=== PATIENT | female | born 1965 ===

== ENCOUNTER 2018-08-09 05:59 | Day surgery (SDC) | payer SELFPAY ==
[2018-07-04 09:48] VITALS: BMI 18.6
[2018-08-09] MEDS ORDERED: Lactated Ringer's 1,000 ML IV ONE (07:00)
[2018-08-09] MEDS ORDERED: Ferric Subsulfate Sol(60 mL) ONE (07:57)
[2018-08-09] MEDS ORDERED: Strong Iodine Topical Sol. 5%-10% ONE (07:57)
[2018-08-09] MEDS ORDERED: Midazolam 2 MG/2 ML VIAL ONE (08:30)
[2018-08-09] MEDS ORDERED: Propofol 10 mg/ml Inj (20 ML) ONE (08:30)
[2018-08-09] MEDS ORDERED: Ferric Subsulfate Sol(60 mL) TP ONE (09:15)
[2018-08-09] MEDS ORDERED: Strong Iodine Topical Sol. 5%-10% TOP ONE (09:15)
[2018-08-09] MEDS ORDERED: Dexamethasone 4 mg/1 ml IVP PRN (09:28)
[2018-08-09 12:46] VITALS: RESP 18
[2018-08-09 13:15] VITALS: BP 120/70; PULSE 72; TEMP 97.6; O2SAT 98
--- NOTE | 2018-08-15 19:18 | OP ---
PROCEDURE DATE: 08/09/2018 PREOPERATIVE DIAGNOSIS: High grade cervical dysplasia. POSTOPERATIVE DIAGNOSIS: High grade cervical dysplasia. PROCEDURE: Loop electrosurgical excision procedure. SURGEON: Nani Richmond MD. SYSTEMS SUPPORT ENGINEER: Clara Holman PGY2. ESTIMATED BLOOD LOSS; 5 mL. INTRAVENOUS FLUIDS: 950 mL lactated Ringer's. COMPLICATIONS: None. PATHOLOGY: Loop cone biopsy. ANESTHESIA: General. FINDINGS: Normal-sized uterus with no adnexal masses or gross lesions noted. Areas of non-uptake seen surrounding the entire transformation zone when Lugols solution applied. DESCRIPTION OF PROCEDURE: The patient was taken to the operating room and placed on general anesthesia without difficulty. She was then placed in the dorsal lithotomy position and prepped and draped in the usual sterile fashion. An insulated bivalve speculum was then inserted into the vagina to expose the cervix. This was fitted with an evacuation system to remove any resultant smoke from the procedure. Lugol solution was then applied to the cervix and the area of non-uptake was seen surrounding the transformation zone. Prior to this, her bladder was then drained of approximately 20 mL of clear yellow urine. The loop electrode was then used to excise the abnormal tissue at the transformation zone moving in an anterior to posterior fashion and this was then removed and handed off the field for pathology. The bed of the excised tissue was then fulgurated using the ball electrode and the periphery of the extracted tissue was then cauterized as well. Minimal bleeding was noted. Monsel solution was then also applied and again good hemostasis was noted. The speculum and all instruments were then withdrawn. The patient was then cleaned, repositioned and awakened from anesthesia. She would be discharged home the same day. She was informed to use Motrin for any pain. Continue pelvic rest and return to the office in 2 weeks for pathology review and postoperative evaluation. Nani Richmond MD [facility]
== END 2018-08-09 14:00 | disposition home or self-care (01) ==
LOC: H.OPSURG 05:59
PROVIDERS: ATTEND Obstetrics & Gynecology
DX: D06.7 Carcinoma in situ of other parts of cervix (principal); N72 Inflammatory disease of cervix uteri
CPT/HCPCS: 57522; 88305; J2001; J2250; J2704; J3010; J7030; J7120